=== PATIENT | male | born 1995 | race Caucasian/White ===

== ENCOUNTER → 2017-09-03 | Outpatient (CLI) | payer BC ==
[~2017-09-03] MED LIST: AMOX-559 PO; FLUT16SP19 NS; LORA10TA2 PO; PRED20TA6 PO
[2017-09-03 09:56] LABS: PLATELET COUNT, AUTOMATED 293 K/uL (150-450)
--- NOTE | 2017-09-03 12:16 | RADIOLOGY IMAGING REPORT ---
FACILITY: [facility] PATIENT NAME: Pacheco Hamilton : 1995 MR: [id number] V: [id number] EXAM DATE: ORDERING PHYSICIAN: MARLEY LIMON TECHNOLOGIST: Location: [facility] Patient: Pacheco Hamilton : 1995 Visit/Account:[id number] Date of Sevice: 09/03/2017 CT abdomen and pelvis without and with IV contrast Indication: Epigastric pain and vomiting. Elevated white blood cell count. Comparison: None available. . Technique: Axial CT images were obtained through the abdomen and pelvis prior to and during injecti on of nonionic iodinated intravenous contrast. Reformatted coronal and sagittal images were also obta ined. One of the following dose optimization techniques was utilized in the performance of this exam: Autom ated exposure control; adjustment of the mA and/or kV according to the patient's size; or use of an i terative reconstruction technique. Specific details can be referenced in the facility's radiology C T exam operational policy. Contrast: 75 ml of Isovue-370 IV contrast. Findings: Lower lung aggarwal: Limited views lower lung field are unremarkable. Liver: No focal parenchymal abnormality of the liver. Biliary: Gallbladder appears unremarkable as well as the intra and extra hepatic biliary system. Pancreas: Normal appearance. Spleen: Normal appearance. Adrenal glands: Unremarkable. Kidneys / retroperitoneum: No evidence of nephrolithiasis or hydronephrosis. Tiny subcentimeter hypod ensity in the left kidney is too small to characterize and statistically benign such as a tiny cyst. Bowel / peritoneum / mesenteries: The visualized gastrointestinal tract, including the appendix, with in normal limits for the stomach is unremarkable. No free air, free fluid, fluid collections or areas of inflammation. Lymph node assessment: No pathologic adenopathy identified. Pelvic structures: Appear unremarkable. Vessels: No significant atherosclerotic calcifications seen throughout a nonaneurysmal abdominal aort a and branches. Musculoskeletal / Body wall: No acute or aggressive osseous abnormality. 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 The lower thoracic spine does show a few mildly prominent Schmor l's nodes without other focal abnormality. IMPRESSION: 1. No acute intra-abdominal abnormality 2. Other chronic findings as above. Report Dictated By: Luís Olivera at 09/03/2017 12:02 PM Report E-Signed By: Luís Olivera at 09/03/2017 12:12 PM WSN:[id number]
== END ==
LOC: LAB 09:44
PROVIDERS: ATTEND Physician Assistant
DX: R10.13 Epigastric pain (principal); R11.10 Vomiting, unspecified; D72.829 Elevated white blood cell count, unspecified
CPT/HCPCS: 36415; 74177; 74178; 82040; 82247; 82310; 82374; 82435; 82565; 82947; 83690; 84075; 84132; 84155; 84295; 84450; 84460; 84520; 85025; Q9967